=== PATIENT | male | born 1995 | race Caucasian/White ===

== ENCOUNTER 2018-03-27 21:04 | Emergency (ER) | payer BC ==
[2018-03-27] MEDS ORDERED: LORazepam 1 MG TAB ONE (21:26)
[2018-03-27] MEDS ORDERED: LORazepam 1 MG TAB PO ONE (21:26)
--- NOTE | 2018-03-27 21:28 | EDPHY ---
H & P Stated Complaint: Fall on R leg days ago, "feeling weird", dizziness, COLEMAN Time Seen by Provider: 03/27/18 21:22 HPI/ROS: CHIEF COMPLAINT: Freakin out HISTORY OF PRESENT ILLNESS: Patient is a 22-year-old man who comes to the emergency department because he is "freaking out". He states that about 5 days ago he was at a green party and fell down a step and developed a contusion to his right posterior thigh. He became concerned that it might turn into a DVT. It has gradually resolved. It is not tender. He was in a meeting today and began thinking about it and began "freaking out". He states that he began shaking and getting lightheaded. He denies shortness of breath. He denies chest pain. No leg pain or swelling. Severity: Moderate Modifying factors: None REVIEW OF SYSTEMS: Constitutional: denies: chills, fever, recent illness, recent injury EENTM: denies: blurred vision, double vision, nose congestion Respiratory: denies: cough, shortness of breath Cardiac: denies: chest pain, irregular heart rate, lightheadedness, palpitations Gastrointestinal/Abdominal: denies: abdominal pain, diarrhea, nausea, vomiting, blood streaked stools Genitourinary: denies: dysuria, frequency, hematuria, pain Musculoskeletal: denies: joint pain, muscle pain Skin: See HPI Neurological: denies: headache, numbness, paresthesia, tingling, dizziness, weakness Hematologic/Lymphatic: denies: blood clots, easy bleeding, easy bruising Immunologic/allergic: denies: HIV/AIDS, transplant EXAM: GENERAL: Well-appearing, well-nourished and in no acute distress. HEAD: Atraumatic, normocephalic. EYES: Pupils equal round and reactive to light, extraocular movements intact, sclera anicteric, conjunctiva are normal. ENT: TMs normal, nares patent, oropharynx clear without exudates. Moist mucous membranes. NECK: Normal range of motion, supple without lymphadenopathy or JVD. LUNGS: Breath sounds clear to auscultation bilaterally and equal. No wheezes rales or rhonchi. HEART: Regular rate and rhythm without murmurs, rubs or gallops. ABDOMEN: Soft, nontender, normoactive bowel sounds. No guarding, no rebound. No masses appreciated. BACK: No CVA tenderness, no spinal tenderness, step-offs or deformities EXTREMITIES: Small well-healing bruise to right posterior thigh, yellowish in color. No cords. No edema. Normal range of motion, no pitting or edema. No clubbing or cyanosis. NEUROLOGICAL: Cranial nerves II through XII grossly intact. Normal speech, normal gait. 5/5 strength, normal movement in all extremities, normal sensation , normal reflexes PSYCH: Anxious, pacing SKIN: Warm, dry, normal turgor, no visible rashes or lesions. Source: Patient Exam Limitations: No limitations - Personal History Current Tetanus Diphtheria and Acellular Pertussis (TDAP): Yes - Medical/Surgical History Hx Asthma: No Hx Chronic Respiratory Disease: No Hx Diabetes: No Hx Cardiac Disease: No Hx Renal Disease: No Hx Cirrhosis: No Hx Alcoholism: No Hx HIV/AIDS: No Hx Splenectomy or Spleen Trauma: No Other PMH: denies - Family History Significant Family History: No pertinent family hx - Social History Smoking Status: Never smoked Alcohol Use: Sober Drug Use: None Constitutional: Initial Vital Signs Temperature (C) 36.6 C 03/27/18 21:06 Heart Rate 93 03/27/18 21:06 Respiratory Rate 18 03/27/18 21:06 Blood Pressure 131/89 H 03/27/18 21:06 O2 Sat (%) 98 03/27/18 21:06 O2 Delivery Mode Room Air Allergies/Adverse Reactions: No Known Allergies Allergy (Unverified 03/27/18 21:05) Home Medications: Medication Instructions Recorded LORazepam [Ativan 1 mg (RX)] 1 mg PO Q6-8PRN PRN #10 tab 03/27/18 Medical Decision Making ED Course/Re-evaluation: The patient feels that this is most most likely an anxiety attack. I agree. His exam is unremarkable. He is not hypoxic or tachycardic in the room. Will treat him with Ativan and observe. 10:30 p.m. the patient feels completely better. His symptoms have resolved. He is eager to go home. He is requesting a small prescription of Ativan to use p.r.n.. Differential Diagnosis: Partial list of the Differential diagnosis considered include but were not limited to; anxiety, contusion and although unlikely based on the history and physical exam, I also considered DVT, acute coronary disease, PE, infection. I discussed these differential diagnoses and the plan with the patient as well as the usual and expected course. The patient understands that the diagnosis is provisional and that in medicine we are not always correct and that further workup is often warranted. Usual and customary warnings were given. All of the patient's questions were answered. The patient was instructed to return to the emergency department should the symptoms at all worsen or return, otherwise to followup with the physician as we discussed. - Data Points Medications Given: Discontinued Medications Lorazepam (Ativan) 2 mg PO EDNOW ONE Stop: 03/27/18 21:27 Last Admin: 03/27/18 21:27 Dose: 2 mg Departure - Departure Disposition: Home, Routine, Self-Care Clinical Impression: Anxiety Condition: Fair Instructions: Anxiety (ED) Referrals: NONE *PRIMARY CARE P,. [Primary Care Provider] - As per Instructions Rebecca Hathaway MD [Medical Doctor] - As per Instructions Prescriptions: LORazepam [Ativan 1 mg (RX)] 1 mg PO Q6-8PRN PRN #10 tab PRN Reason: *Anxiety/Agitation/Insomnia
[2018-03-27 22:52] VITALS: BP 126/84
== END 2018-03-27 22:38 | disposition home or self-care (01) ==
DX: F41.9 Anxiety disorder, unspecified (principal)

== ENCOUNTER 2018-05-24 01:43 | Emergency (ER) | payer BC ==
[2018-05-24 01:47] VITALS: BP 120/85
--- NOTE | 2018-05-24 03:13 | EDPHY ---
H & P Stated Complaint: COLEMAN Time Seen by Provider: 05/24/18 02:36 HPI/ROS: HPI The patient presents with headache and back pain. He says about 4 days ago he was lifting very heavy weights in the gym and felt as if he hurt his low back. It was feeling better over these last few days, however he leaned over and the back pain became worse. He describes it as an achy sensation throughout his low back. He did take some ibuprofen with some improvement in his symptoms. He does think that his back feels stiff. He does not have any numbness or tingling of his legs. He does not have any weakness of his legs. He does not have any changes in his bowel or bladder function. He also reports a mild headache overlying his left temporal region which is aching in nature without any change of vision, nausea, vomiting. He was unable to sleep tonight because of all of these symptoms and comes to the emergency department. He was here recently for an anxiety attack. He questions if some of his symptoms today are related to anxiety. He does report that he is under a great deal of stress. REVIEW OF SYSTEMS 10 systems were reviewed and negative with the exception of the elements mentioned in the history of present illness. PMHx: Recent ED visit for anxiety Soc Hx: College student, taking a full course load, in a fraternity, occasional alcohol use, occasional marijuana use PHYSICAL General Appearance: Alert, no distress Eyes: Pupils equal and round no pallor or injection ENT, Mouth: Mucous membranes moist Respiratory: There are no retractions, lungs are clear to auscultation Cardiovascular: Regular rate and rhythm Gastrointestinal: Abdomen is soft and non-tender, no masses, bowel sounds normal Neurological: A&O, cranial nerves 2-12 intact, 5/5 strength in upper and lower extremities which is symmetric Skin: Warm and dry, no rashes Musculoskeletal: Neck is supple non tender , there is no tenderness of his lumbar or thoracic spine, there is no paraspinal tenderness, there is full range of motion of his spine Extremities: symmetrical, full range of motion Psychiatric: Patient is oriented X 3, there is no agitation Source: Patient Exam Limitations: No limitations - Personal History Current Tetanus/Diphtheria Vaccine: Yes Current Tetanus Diphtheria and Acellular Pertussis (TDAP): Yes - Medical/Surgical History Hx Asthma: No Hx Chronic Respiratory Disease: No Hx Diabetes: No Hx Cardiac Disease: No Hx Renal Disease: No Hx Cirrhosis: No Hx Alcoholism: No Hx HIV/AIDS: No Hx Splenectomy or Spleen Trauma: No Other PMH: denies - Social History Smoking Status: Never smoked Constitutional: Initial Vital Signs Temperature (C) 36.9 C 05/24/18 01:46 Heart Rate 90 05/24/18 01:46 Respiratory Rate 16 05/24/18 01:46 Blood Pressure 120/85 H 05/24/18 01:46 O2 Sat (%) 98 05/24/18 01:46 O2 Delivery Mode Room Air Allergies/Adverse Reactions: No Known Allergies Allergy (Unverified 03/27/18 21:05) Home Medications: Medication Instructions Recorded LORazepam [Ativan 1 mg (RX)] 1 mg PO Q6-8PRN PRN #10 tab 03/27/18 Medical Decision Making Differential Diagnosis: This is a healthy 23-year-old male who presents with low back pain and a headache. He developed back pain after doing some heavy lifting at the gym and then leaning forward. He does not have any neurologic deficits, fevers, weakness. He does have a headache as well which seems to be tension type verses migraine with no nuchal rigidity, neurologic deficit. I think anxiety may be a component to his presentation today and I have discussed this with him at length. He currently has a prescription for Ativan which I have told him is a short-term medication. I have encouraged him to follow up at [facility] for therapy and assessment by Psychiatry. He is on board with this. He does not feel unsafe currently. He will be discharged home. Departure - Departure Disposition: Home, Routine, Self-Care Clinical Impression: Anxiety Lower back pain Qualifiers: Chronicity: acute Back pain laterality: bilateral Sciatica presence: without sciatica Qualified Code(s): M54.5 - Low back pain Headache Qualifiers: Headache type: unspecified Headache chronicity pattern: acute headache Intractability: not intractable Qualified Code(s): R51 - Headache Condition: Good Instructions: Low Back Strain (ED) Additional Instructions: I recommend that you take ibuprofen 400 mg every 6 hr as needed for your back pain and headache. I do recommend that you follow up at [facility] for further care of your anxiety. Your prescribed Ativan, however this is just a short- term solution and you may benefit from a therapist or long-term medication if needed. [facility] can help you with this. Please return to the emergency department if your feeling unsafe or worse in any way. Referrals: [facility],. [Clinic] - As per Instructions
== END 2018-05-24 03:24 | disposition home or self-care (01) ==
DX: F41.9 Anxiety disorder, unspecified (principal); M54.5 Low back pain; R51 Headache